=== PATIENT | female | born 1930 | race Caucasian/White ===

== ENCOUNTER 2018-12-15 06:30 | Outpatient (CLI) | payer MEDICARE, OTHER ==
[2018-12-15 08:10] LABS: BASOPHILS % 0.7 % (0.0-1.5); NEUTROPHILS # 7.3 # k/uL (1.4-7.7)
[2018-12-15 08:11] LABS: HDL 43 mg/dL (>40); eGFR (Non-African) > 60
== END 2018-12-15 06:33 ==
LOC: LAB 06:30
PROVIDERS: ATTEND Family Medicine
DX: I10 Essential (primary) hypertension (principal); E78.5 Hyperlipidemia, unspecified; N32.81 Overactive bladder
CPT/HCPCS: 36415; 80053; 80061; 85025; P9604

== ENCOUNTER 2018-12-23 08:26 | Outpatient (CLI) | payer MEDICARE, OTHER ==
[2019-01-04 13:34] LABS: APPEARANCE,URINE CLOUDY (CLEAR); COLOR,URINE YELLOW (YELLOW); OCCULT BLOOD,URINE NEGATIVE (NEGATIVE); UROBILINOGEN URINE 0.2 Eu (0.2-1.0)
== END 2018-12-23 08:35 ==
LOC: LAB 08:26
PROVIDERS: ATTEND Family Medicine
DX: I10 Essential (primary) hypertension (principal); N32.81 Overactive bladder
CPT/HCPCS: 81002; 87086

== ENCOUNTER 2019-01-12 15:07 | Outpatient (CLI) | payer MEDICARE, OTHER ==
[2019-01-12 15:12] LABS: eGFR (Non-African) 36
== END 2019-01-12 15:12 ==
LOC: LAB 15:07
PROVIDERS: ATTEND Family Medicine
DX: I10 Essential (primary) hypertension (principal); E78.5 Hyperlipidemia, unspecified
CPT/HCPCS: 36415; 80053; P9604

== ENCOUNTER 2019-03-31 20:30 | Emergency (ER) | payer MEDICARE, OTHER ==
[2019-03-31] MEDS ORDERED: Lidocaine 1% 5ml 10 MG/ML VIAL IM ONE ×2 (20:37→21:26)
--- NOTE | 2019-03-31 20:39 | ED Physician Documentation ---
Fall - HISTORIAN Historian: patient - HPI Stated Complaint: fall Chief Complaint: Fall Additional Information: Patient presents to ED via EMS from shelter after falling out of wheel chair just prior to arrival. Patient states she hit her head but did not lose consciousness. She complains of right hip pain and has a laceration to her right forearm. Onset: just prior to arrival Where: other (jail) Context: lost balance r: moderate Associated Symptoms:: no loss of consciousness Location of Pain/Injury: upper extremity (right forearm), hip (right) Injury to Right Extremity: arm (11 cm laceration), hip Injury to Left Extremity: none - ROS CONST: no problems NEURO: denies: dizziness MS/SKIN/LYMPH: denies: weakness EYES/ENT: none CVS/RESP: denies: shortness of breath GI/: denies: nausea, vomiting - PAST HX Past History: none Allergies/Adverse Reactions: Allergies Allergy/AdvReac Type Severity Reaction Status Date / Time epinephrine Allergy Verified 03/31/19 20:53 lovastatin [From Mevacor] Allergy Verified 03/31/19 20:53 Home Medications: Ambulatory Orders Medication Instructions Recorded Aspirin 81 mg PO DAILY 03/31/19 Calcium Citrate 600 mg PO BID 03/31/19 Cholecalciferol (Vitamin D3) 1,000 unit PO DAILY 03/31/19 [Vitamin D3] Fesoterodine Fumarate [Toviaz] 8 mg PO DAILY 03/31/19 Hydrochlorothiazide 25 mg PO DAILY 03/31/19 Losartan Potassium [Cozaar] 100 mg PO DAILY 03/31/19 Metoprolol Tartrate [Lopressor] 25 mg PO BID 03/31/19 Rabeprazole Sodium [Aciphex] 20 mg PO DAILY 03/31/19 Sertraline HCl 100 mg PO DAILY 03/31/19 amLODIPine BESYLATE [Norvasc] 5 mg PO BID 03/31/19 - SOCIAL HX Smoking History: non-smoker Alcohol Use: none Drug Use: none - FAMILY HX Family History: none - REVIEWED ASSESSMENTS Nursing Assessment Reviewed: Yes Vitals Reviewed: Yes Procedures Wound Location: upper extremity (right forearm) Wound Length: 11 cm Wound's Depth, Shape: irregular, contused tissue, other (tissue missing) Irrigated w/ Saline (ccs): 250 Betadine Prep?: Yes Anesthesia: 1% Lidocaine Volume of Anesthetic: 10 Wound Debrided: moderate Wound Repaired With: sutures Suture Size/Type: 5:0 Number of Sutures: 11 Layer Closure?: No Sterile Dressing Applied?: Yes Splint Applied?: No Sling Applied?: No ED Results Lab/Radiology - Radiology Radiology Impressions: Report Submission Date: Mar 31, 2019 9:32:21 PM FINANCIAL AID ADMINISTRATOR Patient Study Name: SHANNA MADDOX Date: Mar 31, 2019 9:00:33 PM FINANCIAL AID ADMINISTRATOR Modality Type: DX Gender: F Description: RT HIP 2VIEW COMPLETE : 34 Institution: [facility] Physician: EVON PORTER Examination: Plain film right hip History: s/p fall from wheelchair, c/o rt hip pain, hx of total hip replacement Comparison exams: None provided Findings: 2 views of the right hip demonstrates total hip replacement hardware in place. No fracture no dislocation. Margins of the superior/inferior pubic rami not well visualized. No soft tissue abnormality. Impression: Hip replacement hardware in place. No acute appearing osseous abnormality. Electronically signed on Mar 31, 2019 9:32:21 PM FINANCIAL AID ADMINISTRATOR by: Jose Francisco Harrington Report Submission Date: Mar 31, 2019 9:32:39 PM FINANCIAL AID ADMINISTRATOR Patient Study Name: SHANNA MADDOX Date: Mar 31, 2019 8:56:58 PM FINANCIAL AID ADMINISTRATOR Modality Type: CT\SR Gender: F Description: CT BRAIN W/O CONTRAST : 32 Institution: [facility] Physician: EVON PORTER Computed tomography head without contrast History: Fall from wheelchair Findings: Transverse brain sections are obtained without contrast revealing moderate global brain atrophy and moderate bilateral cerebral white matter gliosis. Gusman-white differentiation is intact. There is no intracranial hemorrhage or skull fracture. 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 Impression: Moderate brain atrophy, old left cerebellar infarct, and periventricular white matter gliosis. Electronically signed on Mar 31, 2019 9:32:39 PM FINANCIAL AID ADMINISTRATOR by: Camilo Lozada - Orders Orders: ED Orders Category Date Time Status Cleanse with NS and Chlorhexid 1T Care 03/31/19 20:[address] BRAIN W/O CONTRAST Stat Exams 03/31/19 Ordered RT HIP 2VIEW COMPLETE [RAD] Stat Exams 03/31/19 Ordered Lidocaine 1% 5ml [Xylocaine] Med 03/31/19 20:37 Once 50 mg IM NOW ONE Fall Physical Exam - Physical Exam General Appearance: no acute distress, alert Head: non-tender, no swelling, no obvious injury Neck: non-tender, painless ROM Eye: JENN, EOMI ENT: nml external inspection, no oral injury Resp/CVS: chest non-tender, breath sounds nml Abdomen: soft, normal bowel sounds Neuro: oriented x3, motor nml, mood/affect nml Skin: color nml, other (11 cm laceration to forearm ) Back: normal inspection Extremities: atraumatic, pelvis stable, hips non-tender Joint: joints nml - [place] Coma Score Eyes Open: Spontaneous Speech: Oriented Motor: Obeys Commands Discharge Clincal Impression: Laceration of right forearm Qualifiers: Encounter type: initial encounter Qualified Code(s): S51.811A - Laceration without foreign body of right forearm, initial encounter Referrals: Boar Garcia MD [Primary Care Provider] - 2 Days Additional Instructions: 1. Wash laceration twice daily with warm soapy water, pat dry, apply triple antibiotic ointment, then apply dressing. 2. Keep wound covered until sutures removed 3. Tylenol as needed for pain 4. Watch for infection, start antibiotics if necessary 5. Follow up with PCP in 10 days for suture removal 6. Return to ER for new or worsening symptoms Comments: Discussed antibiotics therapy to prevent infection, however, in discussion with patient she has a history of C.diff from antibiotic therapy. We will hold antibiotics for now. Condition: Stable Disposition: [address] [place] [address] Decision to Admit: NO Date of Decison to Admit: 03/31/19 Decision Time: 22:16
[2019-03-31] MEDS ORDERED: DIPH,PERTUSS(ACELL),TET VAC/PF 0.5 ML DISP.SYRIN IM ONE (21:09)
--- NOTE | 2019-03-31 21:37 | Diagnostic Imaging Report ---
PATIENT MR#: [id number] PATIENT PATIENT NAME: SHANNA MADDOX DATE OF : 1930 REFERRING PHYSICIAN: Osiris Dean EXAM DATE: 03/31/2019 ACCESSION NUMBER: [id number] EXAM DESCRIPTION: RT HIP 2VIEW COMPLETE Examination: Plain film right hip History: s/p fall from wheelchair, c/o rt hip pain, hx of total hip replacement Comparison exams: None provided Findings: 2 views of the right hip demonstrates total hip replacement hardware in place. No fracture no dislocation. Margins of the superior/inferior pubic rami not well visualized. No soft tissue abnormality. Impression: Hip replacement hardware in place. No acute appearing osseous abnormality. Read by: Dr. Jose Francisco Harrington Transcribed by: Transcribed Date: Electronically signed by: Dr. Jose Francisco Harrington Date signed: 03/31/2019 9:36:26 PM
--- NOTE | 2019-03-31 21:37 | Diagnostic Imaging Report ---
PATIENT MR#: [id number] PATIENT PATIENT NAME: SHANNA MADDOX DATE OF : 1930 REFERRING PHYSICIAN: Osiris Dean EXAM DATE: 03/31/2019 ACCESSION NUMBER: [id number] EXAM DESCRIPTION: CT BRAIN W/O CONTRAST Computed tomography head without contrast History: Fall from wheelchair Findings: Transverse brain sections are obtained without contrast revealing moderate global brain at rophy and moderate bilateral cerebral white matter gliosis. Gusman-white differentiation is intact. There is no intracra nial hemorrhage or skull fracture. 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 Impression: Moderate brain atrophy, old left cerebellar infarct, and periventricular white matter gl iosis. Read by: Dr. Wily Lozada Transcribed by: Transcribed Date: Electronically signed by: Dr. Wily Lozada Date signed: 03/31/2019 9:36:27 PM
[2019-03-31 22:58] VITALS: BP 148/73
== END 2019-03-31 22:30 ==
LOC: ED 20:30
DX: S51.811A Laceration without foreign body of right forearm, initial encounter (principal); W05.0XXA Fall from non-moving wheelchair, initial encounter; Y92.129 Unspecified place in nursing home as the place of occurrence of the external cause
CPT/HCPCS: 12004; 70450; 73502; 90471; 90715; 96372; 99282; 99284

== ENCOUNTER 2019-04-01 19:05 | Outpatient (CLI) | payer MEDICARE, OTHER ==
[2019-03-31 22:58] VITALS: BP 148/73
[2019-04-01 19:54] LABS: eGFR (Non-African) > 60
[2019-04-02 09:31] LABS: APPEARANCE,URINE CLOUDY (CLEAR); COLOR,URINE YELLOW (YELLOW); OCCULT BLOOD,URINE TRACE-INTACT (NEGATIVE); UROBILINOGEN URINE 0.2 Eu (0.2-1.0)
== END 2019-04-01 19:10 ==
LOC: LAB 19:05
PROVIDERS: ATTEND Family Medicine
DX: R50.9 Fever, unspecified (principal)
CPT/HCPCS: 80053; 81002; 82553

== ENCOUNTER 2019-04-02 11:20 | Outpatient (CLI) | payer MEDICARE, OTHER | END 2019-04-02 11:25 | LOC: LAB 11:20 | PROVIDERS: ATTEND Family Medicine | DX: R41.82 Altered mental status, unspecified (principal); F07.0 Personality change due to known physiological condition; R30.0 Dysuria | CPT/HCPCS: 87086 ==